=== PATIENT | male | born 1945 | race Caucasian/White ===

== ENCOUNTER → 2017-03-26 | Outpatient (CLI) | payer MEDICARE, OTHER | END | disposition home or self-care (01) | LOC: GMAL 10:24 | PROVIDERS: ATTEND Family Medicine | DX: D51.3 Other dietary vitamin B12 deficiency anemia (principal); E78.5 Hyperlipidemia, unspecified; E55.9 Vitamin D deficiency, unspecified ==

== ENCOUNTER → 2017-09-26 | Outpatient (CLI) | payer MEDICARE, OTHER | END | disposition home or self-care (01) | LOC: GMAL 11:01 | PROVIDERS: ATTEND Family Medicine | DX: D51.3 Other dietary vitamin B12 deficiency anemia (principal); E55.9 Vitamin D deficiency, unspecified ==

== ENCOUNTER 2017-12-02 05:39 | Day surgery (SDC) | payer MEDICARE, OTHER ==
--- NOTE | 2017-12-01 19:22 | SSS ---
CHIEF COMPLAINT: History of colon polyps. HISTORY OF PRESENT ILLNESS: Mr. Burden is a 72 year-old male who presents to my office for routine followup. It is noted that it is time for his repeat colonoscopy. He had colonoscopies by this physician in 2011 and again in 2012, both of which showed numerous polyps that were removed. Most of them were tubular adenomas. The scope in 2011 showed a tubulovillous adenoma. He denies any symptoms referable to his bowels. The risks and benefits were discussed and he is agreeable with proceeding. PAST MEDICAL HISTORY: 1. Coronary artery disease. He is status post inferior wall myocardial infarction. He had 8 stents placed in [place] in 1 sitting per patient report. He had a nuclear stress test in November of 2016 that was negative with an ejection fraction of 77%. An echocardiogram in 2013 showed ejection fraction of 60%, grade 1 diastolic dysfunction and mild left atrial enlargement. 2. Hyperlipidemia. 3. Hypertension. 4. Carotid bruit. 5. Former tobacco abuse for 14 years. He quit in 1973. 6. Gastroesophageal reflux disease. 7. Gout diagnosed in November of 2008 with a uric acid of 6.9%. 8. Osteoarthritis. PAST SURGICAL HISTORY: 1. Colonoscopies as above. 2. Bilateral inguinal herniorrhaphies at age 6 in 195. 3. Tonsillectomy in 1949. 4. Bilateral knee replacements in 2005. 5. Lumbar laminectomy in 1982 where he had 3 discs repaired. CURRENT MEDICATIONS: 1. Atenolol. 2. Finasteride. 3. Lipitor. 4. Flomax. 5. 81 mg aspirin. 6. Allopurinol. 7. Fluticasone. 8. Multiple vitamins. ALLERGIES: CODEINE. FAMILY HISTORY: Father has type 2 diabetes. Mother at 77 from a brain aneurysm. He has 3 sisters, one at 57 of unknown causes but suddenly. Another sister, Tomeka, is obese and Natalia has a history of breast cancer. 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 He is remarried. His first from liver cancer. He has 2 years college education at [employer]. He smoked a pack a day for 14 years and quit in 1973. He drinks alcohol very infrequently. REVIEW OF SYSTEMS: Negative except as per History of Present Illness. PHYSICAL EXAMINATION: VITAL SIGNS: Height 5' 10", weight 231. He is afebrile, blood pressure 126/68 , pulse 60. GENERAL: He is awake and alert in no acute distress. HEENT: Unremarkable. NECK: Supple. CHEST: Lungs are clear. CARDIOVASCULAR: Regular rate and rhythm with appreciable murmurs. ABDOMEN: Obese but benign. EXTREMITIES: Without edema. NEUROLOGIC: Nonfocal. RECTAL: Exam is deferred until time of colonoscopy. ASSESSMENT: 1. History of colon polyps. PLAN: Colonoscopy for followup on polyps on 12/02/17. [id number]
[2017-12-02] MEDS ORDERED: LACTATED RINGERS 1,000 ML ONE (07:09)
[2017-12-02 08:20] VITALS: O2SAT 94
--- NOTE | 2017-12-02 09:06 | OP ---
DATE OF PROCEDURE: 12/02/17 PREOPERATIVE DIAGNOSIS: 1. History of colonic polyps. POSTOPERATIVE DIAGNOSIS: 1. (Three) 0.25 by 0.25 cm ascending colon polyps, biopsied to obliteration and all submitted in the same container. 2. 0.25 by 0.25 cm descending colon polyp, biopsied times one to obliteration. 3. (Two) 0.25 by 0.25 cm sigmoid polyps, both biopsied to obliteration and submitted in the same container. 4. Few left sided diverticula. 5. Only fair proximal prep. PROCEDURE: 1. Colonoscopy. SURGEON: Rhett Moreno MD. ESTIMATED BLOOD LOSS: Less than 1 mL. COMPLICATIONS: No immediate complications. ANESTHESIA: Propofol 420 mg administered intravenously using monitored anesthesia care with Jarred Wilson CRNA. TECHNIQUE: After informed consent was obtained from the patient, the patient was taken to the Endoscopy Suite and placed in the left lateral decubitus position. Incremental doses of propofol were given until adequate conscious was obtained. Digital rectal examination was performed which showed a small/ normal sized prostate without nodules. The colonoscope was then advanced into the patient's rectum. A few pieces of solid stool were noted in the sigmoid colon, but they were very small. The bowel prep was good up until around the ascending colon where quite a bit of liquid stool was noted here and all the way to the cecum. The cecum was reached, but the terminal ileum could not be entered. The colonoscope was then slowly withdrawn taking great care to try to visualize all chung of the colon in 360 degree fashion. We tried to suction out as much of the stool in the proximal colon as we could. In the distal ascending colon, three small polyps were noted, biopsied to obliteration and submitted in the same container. Hemostasis was noted at this site and all other sites that were biopsied to come. In the upper descending colon, a 0.25 by 0.25 cm colonic polyp was noted and biopsied to obliteration and submitted in its own container. In the sigmoid colon, a few scattered diverticula were noted. There were also two small 0.25 by 025 cm colonic polyps that were biopsied to obliteration and submitted in the same container. They were both close to each other, just as the three in the ascending colon were very close to each other. In the rectum, the colonoscope was retroflexed upon itself. Grade 1 internal hemorrhoids were noted. The colonoscope was then unretroflexed and air was suctioned out of the patient's rectum. The colonoscope was removed from the patient. The patient tolerated the procedure well and was taken back to the recovery area in good condition. PLAN: The patient will need followup scope in three to five years pending the pathology, but probably closer to three years given the poor proximal prep. We may consider a two-day prep. There was no solid stool proximally, just quite a bit of liquid stool. #[id number] [facility]
[2017-12-02 09:08] VITALS: BP 122/72; TEMP 97.2
[2017-12-02] MEDS ORDERED: PROPOFOL 200 MG/20 ML VIAL IV ONE (10:00)
== END 2017-12-02 09:04 | disposition home or self-care (01) ==
LOC: AMB 05:39
PROVIDERS: ATTEND Family Medicine
DX: Z12.11 Encounter for screening for malignant neoplasm of colon (principal); K64.0 First degree hemorrhoids; I25.10 Atherosclerotic heart disease of native coronary artery without angina pectoris; E78.5 Hyperlipidemia, unspecified; D12.2 Benign neoplasm of ascending colon; D12.4 Benign neoplasm of descending colon; D12.5 Benign neoplasm of sigmoid colon; Z86.010 Personal history of colon polyps; I10 Essential (primary) hypertension; K21.9 Gastro-esophageal reflux disease without esophagitis; Z87.891 Personal history of nicotine dependence; M10.9 Gout, unspecified; Z95.5 Presence of coronary angioplasty implant and graft; Z96.653 Presence of artificial knee joint, bilateral; Z88.8 Allergy status to other drugs, medicaments and biological substances; Z79.82 Long term (current) use of aspirin; Z79.899 Other long term (current) drug therapy
CPT/HCPCS: 00812; 45380; 88305; J3490; J7120

== ENCOUNTER → 2017-12-16 | Outpatient (CLI) | payer MEDICARE, OTHER | LOC: GMAL 10:52 | PROVIDERS: ATTEND Family Medicine | DX: Z12.5 Encounter for screening for malignant neoplasm of prostate (principal) ==

== ENCOUNTER 2018-06-21 21:39 | Emergency (ER) | payer OTHER ==
[2018-06-21] MEDS ORDERED: LIDOCAINE 1% 10 ML VIAL INJ ONE (22:00)
[2018-06-21] MEDS ORDERED: TETANUS,DIPHTHERIA,PERTUSSIS 1 EA SYG IM ONE (22:07)
[2018-06-21] MEDS ORDERED: CEPHALEXIN 500MG CAP (ER DISP) PO ONE (22:08)
--- NOTE | 2018-06-21 22:11 | ED.PDOC ---
History of Present Illness - General Chief Complaint: Skin/Abrasion/Tear Stated Complaint: fish hook to right hand Time Seen by Provider: 06/21/18 22:07 Source: patient Exam Limitations: no limitations - History of Present Illness Initial Comments: Was cleaning catfish and removing lure when his R hand became hooked with much bleeding Timing/Duration: 1 hour Severity: moderate Improving Factors: nothing Worsening Factors: movement Associated Symptoms: denies symptoms Allergies/Adverse Reactions: Allergies Codeine Allergy (Unknown, Verified 06/21/18 22:06) Home Medications: Ambulatory Orders Allopurinol [Zyloprim] 100 mg PO BID 12/24/12 Aspirin [Zara Chewable Low Dose] 81 mg PO HS 12/24/12 Atenolol 50 mg PO HS 12/24/12 Atorvastatin Calcium [Lipitor] 40 mg PO HS 12/24/12 Fish Oil [(None)] 1,200 mg PO AM 12/24/12 Multiple Vitamins W/ Minerals [Centrum Silver] 1 tab PO AM 12/24/12 Omeprazole [Prilosec] 20 mg PO HS 12/24/12 Tamsulosin [Flomax] 0.4 mg PO QD 12/24/12 Vitamin E [E-400] 400 unit PO BID 12/02/17 Cephalexin 500 mg PO TID #15 cap 06/21/18 Review of Systems - Review of Systems Constitutional: States: no symptoms reported EENTM: States: no symptoms reported Respiratory: States: no symptoms reported Skin: States: see HPI Past Medical History (General) - Patient Medical History Hx Seizures: No Hx Stroke: No Hx Dementia: No Hx Asthma: No Hx of COPD: No Hx Cardiac Disorders: Yes - hx of heart attack 15 years ago Hx Congestive Heart Failure: No Hx Pacemaker: No Hx Hypertension: Yes Hx Thyroid Disease: No Hx Diabetes: No Hx Gastroesophageal Reflux: Yes Hx Renal Disease: No Hx Cancer: No Hx of HIV: No Hx Hepatitis C: No Hx MRSA: No - Vaccination History Hx Tetanus, Diphtheria Vaccination: Yes Hx Influenza Vaccination: Yes Hx Pneumococcal Vaccination: Yes - Social History Hx Tobacco Use: Yes Hx Alcohol Use: Yes Family Medical History - Family History Mother Family History: Unknown Physical Exam - Physical Exam General Appearance: Alert, No apparent distress Extremity: normal range of motion, swelling, other - R hand has fishhook in dorsal aspect with a skin tear and small hematoma Neurologic: alert, normal mood/affect, oriented x 3 Procedures - Foreign Body Removal Foreign Body Removal: fish hook - lidocaine local 1 %, hook backed out with pliers without difficulty Departure - Departure Clinical Impression: fishhook to R hand Disposition: Discharge to Home or Self Care Departure Forms: ED Discharge - Pt. Copy, Patient Portal Self Enrollment Referrals: Rhett Moreno III, MD [Primary Care Provider] - 1-2 Weeks Prescriptions: Cephalexin 500 mg PO TID #15 cap Home Medications: Ambulatory Orders Allopurinol [Zyloprim] 100 mg PO BID 12/24/12 Aspirin [Zara Chewable Low Dose] 81 mg PO HS 12/24/12 Atenolol 50 mg PO HS 12/24/12 Atorvastatin Calcium [Lipitor] 40 mg PO HS 12/24/12 Fish Oil [(None)] 1,200 mg PO AM 12/24/12 Multiple Vitamins W/ Minerals [Centrum Silver] 1 tab PO AM 12/24/12 Omeprazole [Prilosec] 20 mg PO HS 12/24/12 Tamsulosin [Flomax] 0.4 mg PO QD 12/24/12 Vitamin E [E-400] 400 unit PO BID 12/02/17 Cephalexin 500 mg PO TID #15 cap 06/21/18
[2018-06-21] MEDS ORDERED: NEOMYCIN-BACITRACIN-POLYMYXIN 0.9 GM UD TOP ONE (22:22)
[2018-06-21 22:46] VITALS: BP 117/68; TEMP 98.3; O2SAT 95
== END 2018-06-21 22:45 | disposition home or self-care (01) ==
LOC: ER 21:39
DX: S60.551A Superficial foreign body of right hand, initial encounter (principal); I10 Essential (primary) hypertension; K21.9 Gastro-esophageal reflux disease without esophagitis; I25.2 Old myocardial infarction; Z88.5 Allergy status to narcotic agent; Z79.82 Long term (current) use of aspirin; Z87.891 Personal history of nicotine dependence; Z79.899 Other long term (current) drug therapy; W45.8XXA Other foreign body or object entering through skin, initial encounter; Y93.89 Activity, other specified; Y92.9 Unspecified place or not applicable

== ENCOUNTER → 2018-12-18 | Outpatient (CLI) | payer OTHER | LOC: GMAL 11:39 | PROVIDERS: ATTEND Family Medicine | DX: D51.3 Other dietary vitamin B12 deficiency anemia (principal); E55.9 Vitamin D deficiency, unspecified ==